=== PATIENT | male | born 1950 ===

== ENCOUNTER → 2019-05-02 06:45 | Day surgery (SDC) | payer MEDICARE ==
[~2019-05-02 06:45] MED LIST: Acetaminophen TAB* 325 MG ONE; Acetaminophen TAB* 325 MG PO ONE; Buffered Lidocaine 1% SYRIN* 1 ML/SYRINGE INTRADERM ONE; Bupivacaine 0.5%* 50 ML MDV VIAL ONE; HYDROmorphone INJ1* 1 MG/ML SYRINGE IV PRN; Ketorolac INJ* 30 MG/ML 1 ML VIAL IV PRN; Lactated Ringers 1000 ML Bag* 1,000 ML IV SCH; Midazolam* 1 MG/ML 2 ML VIAL (2 MG) ONE; Naloxone* 0.4 MG/ML 1 ML VIAL IV PRN; Ondansetron INJ* 2 MG/ML VIAL IV PRN; PROCHLORPERAZINE INJ 5 MG/ML 2 ML VIAL IV PRN; ROPIVACAINE 5 MG/ML 30 ML BTL (0.5%) ONE; ceFAZolin 2 GM in NS PREMIX(*) 2 GM/100 ML BAG IVPB ONE; diPHENhydraMINE IV* 50 MG/ML 1 ml VIAL (BENADRYL) IV PRN; fentaNYL* 50 MCG/ML 2 ML VIAL (100 MCG VIAL) ONE; oxyCODONE TAB* 5 MG TAB ONE; oxyCODONE TAB* 5 MG TAB PO PRN
--- NOTE | 2019-05-02 11:07 | OP ---
Operative Report - Blank - Operative Report Date of Operation: 05/02/19 Note: PATIENT: Maulik Valdez DATE OF : 1950 DATE OF SURGERY: 05/02/2019 SURGEON: Brian Monroe MD TEACHER INSTRUMENTAL: HEATHER Ascencio, whos assistance was necessary for positioning, retraction, help with instrumentation, and closure. ANESTHESIOLOGIST: Dr. 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 Right Achilles tendon debridement and repair 2. Right Achilles tendon tenolysis 3. Right leg posterior compartment fasciotomy 4. Right gastrocnemius recession (Arron procedure) ANESTHESIA: Spinal IMPLANTS: none TOURNIQUET TIME: Less than 1 hour minutes with a well-padded thigh tourniquet at 250mmHg SPECIMENS: none ESTIMATED BLOOD LOSS: minimal COMPLICATIONS: none STATUS: Stable from the operating room to the recovery room and then home. INDICATIONS FOR PROCEDURE: Maulik has had persistent right non-insertional Achilles pain despite extensive non-op treatment. Both operative and non operative treatment alternatives were reviewed. Further, the nature and risks of surgery were reviewed in careful detail in the office as well as in the preoperative holding area. Our discussions regarding the risks of surgery included, but were not limited to, infection, wound problems, nerve injury, neuroma, RSD, persistent symptoms, blood clot, rupture, failure of the surgery, and even the remote chance of catastrophic complication. DESCRIPTION OF PROCEDURE: The patient was seen in the preoperative holding unit and informed written consent was obtained. The appropriate extremity was marked. The patient was then brought to the operating room and carefully positioned on the operating room table in the prone position. Anesthesia was induced. All bony prominences were padded with great care. A well-padded thigh tourniquet was placed. A chlorhexidine based pre-scrub was performed followed by a chloraprep prep and drape in standard sterile fashion. A surgical safety pause was then conducted in which we confirmed the appropriate patient, extremity, planned procedure, availability of equipment, indication and administration of prophylactic antibiotics, and DVT prophylaxis in the form of a compression boot on the non- surgical extremity. Exsanguination of the extremity was performed and the tourniquet was inflated. I began by utilizing a longitudinal incision overlying non-insertional Achilles tendon. I then carefully dissected down to the peritenon layer, which was opened in line with the skin incision. I exposed the Achilles tendon and there was inflammatory tissue present which was dissected away from the tendon. I then performed an extensive tenolysis both proximally and distally. I then examined the Achilles tendon and there was a small split longitudinal tear. This tear was utilized to debride some degenerative Achilles tendon tissue in the middle of the tendon. I then used a 0 Vicryl suture to repair the tendon tear. I then retracted the Achilles tendon to expose the fascia of the posterior compartment. A posterior compartment fasciotomy was then performed to relieve any stenosis and increase the volume available for the Achilles tendon. I then made a separate, approximately 3-cm incision at the posteromedial calf. I carried the dissection through the soft tissue and divided the crural fascia longitudinally. I then exposed the fascia of the gastrocnemius muscle. Great care was taken to protect the sural nerve throughout this procedure. I cleared all adhesions from the posterior aspect of the gastrocnemius fascia and then transected this in its entirety from medially to laterally. This was transected. These procedures had the effect of improving the ankle dorsiflexion to approximately 10 degrees. I then again confirmed that the sural nerve was in continuity. The wounds were then copiously irrigated and meticulously closed in layers utilizing 3-0 Monocryl for the subdermal layer, and 3-0 nylon or jevon for the skin. A sterile dressing was then applied followed by a splint with the ankle in a neutral position. The patient was then awakened from anesthesia and transferred to the recovery room in stable condition. There were no complications. All needle and sponge counts were correct at the end of the case. ATTESTATION: I attest I was present and scrubbed and performed the critical portions of the procedure myself. POSTOPERATIVE PLAN: The patient will remain [id number] for an anticipated duration of 2 weeks and follow up in two weeks for likely suture removal and Steri-Strip application. At 2 weeks we will likely transition to a walking boot and start physical therapy. We will use a Xarelto 2 weeks for DVT prophylaxis.
[2019-05-02 14:38] VITALS: BP 123/68
== END | disposition home or self-care (01) ==
LOC: OR 06:45
PROVIDERS: ATTEND Orthopaedic Surgery
DX: M67.01 Short Achilles tendon (acquired), right ankle (principal); M76.61 Achilles tendinitis, right leg; E03.9 Hypothyroidism, unspecified; J30.2 Other seasonal allergic rhinitis; C88.0 Waldenstrom macroglobulinemia
CPT/HCPCS: A9270-GY; J0690; J2250; J2795; J3010; J3490